=== PATIENT | female | born 1990 | race Caucasian/White ===

== ENCOUNTER 2016-12-09 22:53 | Emergency (ER) | payer BC | END 2016-12-10 00:12 | disposition home or self-care (01) | LOC: ER1 22:53 | DX: L03.115 Cellulitis of right lower limb (principal); K50.90 Crohn's disease, unspecified, without complications; Z88.0 Allergy status to penicillin; Z79.899 Other long term (current) drug therapy | CPT/HCPCS: 84703; 87070; 87077; 87186; 87205; 96372; 99283 ==

== ENCOUNTER → 2017-01-01 | Outpatient (CLI) | payer BC | LOC: LAB 14:32 | DX: K50.90 Crohn's disease, unspecified, without complications (principal) | CPT/HCPCS: 87070; 87081; 87205 ==